=== PATIENT | female | born 1995 ===

== ENCOUNTER 2020-10-10 13:27 | Emergency (ER) | payer SELFPAY ==
[~2020-10-10] VITALS: Ht 162.6 cm; Wt 50.9 kg
--- NOTE | 2020-10-10 13:42 | PHYS DOC ---
General Adult EDM: Chief Complaint: FEVER HPI: HPI: History dated patient. Patient is a 25-year-old female with a history of asthma who presents with multiple complaints. Patient states that she has been living at home with her baby does have positive for coronavirus. She has been quarantining with that remain 10 days ago. She herself has not been tested. She notes for the past 24 hours she developed a dry cough. She denies any productive sputum. Denies any objective fevers. Denies any recent antibiotics. States he has body aches as well. Does endorse some loss of taste and smell. States she does have some chest heaviness when she coughs. Has tried TheraFlu and Tylenol at home with minimal relief. Her greatest concern is being evaluated for Covid. Denies syncope. Denies vomiting. Does endorse body aches. No other complaints. Review of Systems: Review of Systems: Constitutional: Positive for body aches Eyes: Denies change in visual acuity HENT: Positive for congestion Respiratory: Positive for cough Cardiovascular: Denies chest pain or edema GI: Denies abdominal pain, nausea, vomiting, bloody stools or diarrhea : Denies dysuria Musculoskeletal: Denies back pain or joint pain Integument: Denies rash Neurologic: Denies headache, focal weakness or sensory changes Endocrine: Denies polyuria or polydipsia Lymphatic: Denies swollen glands Psychiatric: Denies depression or anxiety Physical Exam: PE: Constitutional: Well developed, well nourished, no acute distress, non-toxic appearance. [] HENT: Normocephalic, atraumatic, bilateral external ears normal, oropharynx moist, no oral exudates, nose normal. [] Eyes: PERRLA, EOMI, conjunctiva normal, no discharge. [] Neck: Normal range of motion, no tenderness, supple, no stridor. [] Cardiovascular:Heart rate regular rhythm, no murmur [] Lungs & Thorax: Bilateral breath sounds clear to auscultation [] Abdomen: Bowel sounds normal, soft, no tenderness, no masses, no pulsatile masses. [] Skin: Warm, dry, no erythema, no rash. [] Back: No tenderness, no CVA tenderness. [] Extremities: No tenderness, no cyanosis, no clubbing, ROM intact, no edema. [] Neurologic: Alert and oriented X 3, normal motor function, normal sensory function, no focal deficits noted. [] Psychologic: Affect normal, judgement normal, mood normal. [] Current Patient Data: Vital Signs: Vital Signs Date Time Temp Pulse Resp B/P (MAP) Pulse Ox O2 Delivery O2 Flow Rate FiO2 10/10/20 13:34 99.0 82 16 97 Room Air EKG: EKG: EKG consistent with normal sinus rhythm. Ventricular rate 84 bpm. Slight right axis noted. Small Q waves noted in lead III. No acute ischemic changes appreciated. [] Radiology/Procedures: Radiology/Procedures: [place] [address] IMAGING REPORT Signed PATIENT: LAY DOOLEY ACCOUNT: [id number] : 1995 LOCATION: ER AGE: 25 SEX: F EXAM STATUS: REG ER ORD. PHYSICIAN: TRAMAINE JO DO REASON: cough PROCEDURE: CHEST AP ONLY EXAM: CHEST 1 VIEW History: Cough COMPARISON: None available. TECHNIQUE: Single portable radiograph of the chest FINDINGS: The cardiac silhouette is unremarkable. The lungs are clear bilaterally. The costophrenic sulci are clear and well demarcated. IMPRESSION: No radiographic evidence of an acute cardiopulmonary process. Electronically signed by: Jovi Williamson MD (10/10/2020 2:22 PM) [id number] DICTATED AND SIGNED BY: JOVI WILLIAMSON MD DATE: 10/10/20 1422 CC: PCP,NO; TRAMAINE JO DO ~MTH0 0 [] Heart Score: Risk Factors: Risk Factors: DM, Current or recent (<one month) smoker, HTN, HLP, family hi story of CAD, obesity. Risk Scores: Score 0 - 3: 2.5% MACE over next 6 weeks - Discharge Home Score 4 - 6: 20.3% MACE over next 6 weeks - Admit for Clinical Observation Score 7 - 10: 72.7% MACE over next 6 weeks - Early Invasive Strategies Course & Med Decision Making: Course & Med Decision Making Pertinent Labs and Imaging studies reviewed. (See chart for details) [] Patient is a well-appearing 25-year-old female who presents with multiple complaints including cough, chest heaviness, shortness of breath, body aches. She does note that her roommate has been diagnosed with Covid approximate 10 days ago. There is vital signs unremarkable. EKG without acute ischemic changes. Chest x-ray nonacute. No signs of bacterial consolidation. I feel her chest pain is likely cardiac in nature. Overall do not feel any further laboratory analysis or imaging is indicated. She was given supportive care measures to use at home. She was instructed to quarantine until her Covid results return. Patient is agreeable to this plan. Repeat vital signs been stable and her exam remains unchanged. Return precautions discussed and understood. Struck to follow-up with her primary care physician next 2 to 3 days. Stable for discharge home. COVID-19 CRITERIA: The patient was evaluated during the global COVID-19 pandemic, and that diagnosis was suspected/considered upon their initial presentation. Their evaluation, treatment and testing was consistent with current guidelines for patients who present with complaints or symptoms that may be related to COVID-19. Dragon Disclaimer: Dragon Disclaimer: This electronic medical record was generated, in whole or in part, using a voice recognition dictation system. Departure Departure: Impression: Primary Impression: Cough Additional Impression: Exposure to COVID-19 virus Disposition: 01 DC HOME SELF CARE/HOMELESS Condition: STABLE Referrals: PCPJOAN (PCP) BIA CHAVEZ MD Additional Instructions: You have been tested for or diagnosed with COVID-19. It is an infection caused by a new type of coronavirus. COVID-19 will cause cold-like or mild flu symptoms in most. It can cause more severe symptoms like problems breathing in some. There is no treatment for COVID-19. The body will clear the infection over time. Self-care will help to ease discomfort. Steps to Take: Self-Care Rest as needed. Healthy habits may help you feel better. Steps include: Choose healthy foods including fruits and vegetables. Drink water throughout the day. Get plenty of sleep each night. If you smoke, try to quit. It may ease breathing. Avoid alcohol. Keep Others Healthy The virus can spread to others. Droplets are released every time you sneeze or cough. The droplets can get into the mouth, nose, or eyes of people near you and lead to infection. To lower the chances of spreading COVID-19 to others: Stay at home until your doctor has said it is safe to leave. If you tested positive this will mean staying isolated until both of the following are true: At least 7 days have passed since the start of illness. You are free of fever for at least 72 hours without the use of medicine. During this time: - Avoid public areas, events, or transportation. Do not return to work or school until your doctor has said it is safe to do so. - Call ahead if you need to go to a medical center. Let them know you may have COVID-19. It will help them guide you where to go. They may also ask you to wear a facemask when you come to the office. - If you call for emergency medical services, let them know you may have COVID- 19. While at home: - Try to avoid close contact with others. Stay about 6 feet away. - If possible, spend most of your time in a separate room from others. - Use a face mask if you will be in close contact with others such as sharing a room or vehicle. - Have someone wipe down common surfaces in the home. Use household pegger every day on areas like doorknobs, counters, or sinks. - Cough or sneeze into a tissue. Throw the tissue away right after use. If a tissue is not available, cough or sneeze into your elbow. - Wash your hands often. Wash them after sneezing or coughing. Use soap and water and wash for at least 20 seconds. Alcohol based hand coach cleaner can be used if soap and water is not available. - Do not prepare food for others. Avoid sharing personal items like forks, spoons, or toothbrushes. - Avoid close contact with pets while you are sick. There is no evidence of the virus passing to pets. This is a safety step until more is known about this virus. Isolation can be frustrating. Social interaction can help. Keep in touch with friends and family through phone and tech options. You can still interact with others in your home, just keep a safe distance of about 6 feet. Follow-up: Your doctors office will check in with you to see if there are any changes in your health. You may be asked to keep track of symptoms to share with them. They will also let you know when you are clear to be in public again. Problems to Look Out For: Contact your doctor if your recovery is not going as you expect. Get emergency care if you have problems such as: - Trouble breathing - Nonstop chest pain or pressure - Changes in awareness, confusion, or problems waking - Lips or face have bluish color - Worsening of symptoms If you think you have an emergency, call for emergency medical services right away. As taken from [facility] Script[facility] Acetaminophen (TYLENOL) 325 Mg Tablet 1-2 TAB PO QID for pain for 7 Days, #30 TAB 2 Refills Prov: TRAMAINE JO DO 10/10/20 Guaifenesin/Dextromethorphan (MUCINEX DM ER 600-30 MG TABLET) 1 Each Tab.er.12h 1 TAB PO PRN BID PRN for cough and congestion for 5 Days, #10 TAB 0 Refills Prov: TRAMAINE JO DO 10/10/20 Fluticasone Propionate (Flonase Allergy Relief) 9.9 Ml [place].susp 2 SPRAYS NS DAILY for nasal congestion for 14 Days, #1 BOTTLE Prov: TRAMAINE JO DO 10/10/20 TRAMAINE JO DO Oct 10, 2020 13:42
--- NOTE | 2020-10-10 14:25 | RAD ---
EXAM: CHEST 1 VIEW History: Cough COMPARISON: None available. TECHNIQUE: Single portable radiograph of the chest FINDINGS: The cardiac silhouette is unremarkable. The lungs are clear bilaterally. The costophrenic sulci are clear and well demarcated. IMPRESSION: No radiographic evidence of an acute cardiopulmonary process. Electronically signed by: Jovi Arreaga MD (10/10/2020 2:22 PM) [id number]
[2020-10-10] MEDS ORDERED: ACET325T9 PO (14:41)
[2020-10-10] MEDS ORDERED: FLUT9.9S NS (14:41)
[2020-10-10] MEDS ORDERED: GUAI-108 PO (14:41)
--- NOTE | 2020-10-10 15:20 | EKG ---
[address] [address] Test Date: 2020-10-10 Test Time: 13:43:34 Pat Name: LAY DOOLEY Department: Room: Gender: F [employer] Supervisor: COLLEEN : 1995 Requested By: TRAMAINE JO Order Number: [id number] Reading MD: Lucius Melchor Measurements Intervals [place] Rate: 84 P: 49 MT: 124 QRS: 81 QRSD: 84 T: 38 QT: 338 QTc: 402 Interpretive Statements SINUS RHYTHM NORMAL ECG RI6.02 No previous ECG available for comparison Electronically Signed On 10-14-2020 10:56:06 NEGATIVE SPOTTER by Lucius Melchor
== END 2020-10-10 14:45 | disposition home or self-care (01) ==
LOC: ER 13:27
DX: R05 Cough (principal); M79.10 Myalgia, unspecified site; R43.9 Unspecified disturbances of smell and taste; Z20.828 Contact with and (suspected) exposure to other viral communicable diseases
CPT/HCPCS: 71045; 93005; 99285; C9803; U0003

== ENCOUNTER 2021-10-23 12:28 | Emergency (ER) | payer OTHER ==
[~2021-10-23] VITALS: Ht 162.6 cm; Wt 50.9 kg
[~2021-10-23 12:28] MED LIST: ACET325T9 PO; FLUT9.9S NS; GUAI-108 PO
[2021-10-23 12:45] VITALS: BP 119/75
--- NOTE | 2021-10-23 13:10 | PHYS DOC ---
Past History Past Medical History: Asthma (FREDA HARRIS APRN) Past Surgical History: No Surgical History (FREDA HARRIS APRN) Alcohol Use: None (FREDA HARRIS APRN) General Adult EDM: Chief Complaint: FOOT INJURY PAIN HPI: HPI: Patient is a 26-year-old female who presents to the emergency department for left foot pain post injury. Patient reports that 1 hour prior to arrival she ran over her left foot with a power [place] loaded with gym equipment at work. She rates her pain 10 out of 10. It is worse with movement. She describes as a throbbing pain. No treatment prior to arrival. Patient reports that she has been able to slightly bear weight on her foot, decreased range of motion due to pain. She denies any decreased sensation to her extremity. (FREDA HARRIS APRN) Review of Systems: Review of Systems: Musculoskeletal: See HPI Integument: See HPI Neurologic: See HPI (FREDA HARRIS APRN) Allergies: Allergies: Allergies Coded Allergies Type Severity Reaction Last Updated Verified Penicillins Allergy Unknown 10/10/20 Yes vancomycin Allergy Unknown 10/10/20 Yes (FREDA HARRIS APRN) Physical Exam: PE: Constitutional: Well developed, well nourished, no acute distress, non-toxic appearance. [] HENT: Normocephalic, atraumatic Eyes: PERRL, EOMI, conjunctiva normal, no discharge. [] Neck: Normal range of motion, no stridor Cardiovascular: Normal peripheral perfusion Lungs & Thorax: Normal work of breathing, no tachypnea Abdomen: Soft and flat Skin: Warm, dry, no erythema, no rash. [] Back: Normal range of motion Extremities: No tenderness, no cyanosis, no clubbing, ROM intact, no edema. Left foot: Ecchymosis noted to top of left foot, pain with palpation to top of left foot, range of motion intact, neuro intact, no obvious deformity or open w ounds Neurologic: Alert and oriented X 3, normal motor function, normal sensory function, no focal deficits noted. [] Psychologic: Affect normal, judgement normal, mood normal. [] (FREDA HARRIS APRN) Current Patient Data: Vital Signs: Vital Signs Date Time Temp Pulse Resp B/P (MAP) Pulse Ox O2 Delivery O2 Flow Rate FiO2 10/23/21 12:45 98.0 71 18 119/75 (90) 100 Room Air (FREDA HARRIS APRN) EKG: EKG: [] (FREDA HARRIS APRN) Radiology/Procedures: Radiology/Procedures: []PROCEDURE: FOOT LEFT 3V XR EXAM OF ANKLE_LEFT 3V, XR FOOT_LEFT 3 VIEWS Clinical indications: Reason: RAN OVER BY TRUCK AND TWISTED ANKLE / Spl. Instructions: / History: Findings: No acute fracture or dislocation or osteolytic process is evident. Mortise ankle joint is intact. IMPRESSION: No acute osseous abnormality is evident. Electronically signed by: Alla Richards MD (10/23/2021 1:36 PM) [id number] DICTATED AND SIGNED BY: ALLA RICHARDS MD DATE: 10/23/211333 CC: ARMANDO SIMPSON DO; EMILY COLE DO; FREDA HARRIS APRN ~MTH0 0 (FREDA HARRIS APRN) Heart Score: C/O Chest Pain: N/A Risk Factors: Risk Factors: DM, Current or recent (<one month) smoker, HTN, HLP, family history of CAD, obesity. Risk Scores: Score 0 - 3: 2.5% MACE over next 6 weeks - Discharge Home Score 4 - 6: 20.3% MACE over next 6 weeks - Admit for Clinical Observation Score 7 - 10: 72.7% MACE over next 6 weeks - Early Invasive Strategies (FREDA HARRIS APRN) Course & Med Decision Making: Course & Med Decision Making Pertinent Labs and Imaging studies reviewed. (See chart for details) [] Patient presents to the emergency department for left foot injury after running over her foot with a power [place] loaded with gym equipment. An x-ray was performed that showed no acute findings. Patient's pain was treated in the ER and she was given an ice pack. Patient's foot placed in a Mg wrap and postop shoe. Patient advised to take anti-inflammatory medications at home for the pain. Patient will be discharged home with pain medication. I discussed with patient all findings and diagnostic testing as well as the need to follow-up with PCP for further evaluation and treatment or return to the ER if any new or worsening symptoms. Strict return precautions were also discussed at length. Patient voiced understanding and agreement with the plan. Patient is hemodynamically stable at the time of disposition.. (FREDA HARRIS APRN) Dragon Disclaimer: Dragon Disclaimer: This electronic medical record was generated, in whole or in part, using a voice recognition dictation system. (FREDA HARRIS APRN) Attending Co-Sign The patient was seen and interviewed as well as examined at the bedside. The chart was reviewed. The case was discussed. Agree with the plan of care. (ARMANDO SIMPSON DO) Departure Departure: Impression: Primary Impression: Foot contusion Qualified Codes: S90.32XA - Contusion of left foot, initial encounter Disposition: HOME / SELF CARE / HOMELESS Condition: GOOD Referrals: EMILY COLE DO (PCP) Patient Instructions: Foot Contusion Additional Instructions: You were seen in the emergency department today for foot injury. Imaging was performed that showed no acute findings. Your foot was placed in a Mg wrap and Ortho shoe to help with support and comfort.. Your symptoms may be improved by something called the rice protocol. This is rest, ice, compression, elevation. Please follow-up when doing intense exercises that may make the pain worse. Sometimes gentle stretching can provide relief, but be careful to injury. It is important to perform gentle range of motion exercises to prevent stiff joints and chronic pain. Use ice packs over the affected areas to help decrease your pain. For the first 24 hours you can apply ice 20 minutes on 20 minutes off for 4 times per day. Sometimes compression such as the use of an Mg wrap can help with the swelling. You may also elevate the affected area to help with the swelling. You can take ibuprofen or naproxen for mild pain. For severe pain you are being discharged home with a medication called [place]. This medication is hydrocodone and Tylenol combination tablet. Do not take any additional Tylenol with this medication. This medication may cause drowsiness so do not take needs to be alert, driving a vehicle or with alcohol. Please follow-up with your primary care provider on Tuesday regarding your ER visit. Please return to the emergency department if you develop worsening of your pain, increased falling, decreased range of motion or decreased sensation to your extremity. Scripts Hydrocodone Bit/Acetaminophen (HYDROCODONE-APAP 5-325 ) 1 Each Tablet 1 TAB PO PRN Q6HRS PRN for PAIN for 2 Days, #8 TAB 0 Refills Prov: FREDA HARRIS APRN 10/23/21 FREDA HARRIS APRN Oct 23, 2021 13:10 ARMANDO SIMPSON DO Oct 24, 2021 08:03
[2021-10-23] MEDS ORDERED: HYDROcodone/APAP 5/325MG 1 TAB TABLET PO ONE (13:15)
[2021-10-23] MEDS ORDERED: ONDANSETRON ODT 4 MG TAB.RAPDIS ONE (13:36)
--- NOTE | 2021-10-23 13:38 | RAD ---
XR EXAM OF ANKLE_LEFT 3V, XR FOOT_LEFT 3 VIEWS Clinical indications: Reason: RAN OVER BY TRUCK AND TWISTED ANKLE / Spl. Instructions: / History: Findings: No acute fracture or dislocation or osteolytic process is evident. Mortise ankle joint is intact. IMPRESSION: No acute osseous abnormality is evident. Electronically signed by: Zane Richards MD (10/23/2021 1:36 PM) [id number]
[2021-10-23] MEDS ORDERED: HYDR-2155 PO (13:44)
== END 2021-10-23 14:06 | disposition home or self-care (01) ==
LOC: ER 12:28
DX: S90.32XA Contusion of left foot, initial encounter (principal); Z88.0 Allergy status to penicillin; Z88.1 Allergy status to other antibiotic agents; X58.XXXA Exposure to other specified factors, initial encounter; Y93.43 Activity, gymnastics; Y92.89 Other specified places as the place of occurrence of the external cause; Y99.8 Other external cause status
CPT/HCPCS: 73610; 73630; 99284-25

== ENCOUNTER 2021-11-10 07:41 | Emergency (ER) | payer OTHER ==
[~2021-11-10] VITALS: Ht 162.6 cm; Wt 57.7 kg
[~2021-11-10 07:41] MED LIST changes: +HYDR-2155 PO
--- NOTE | 2021-11-10 08:50 | PHYS DOC ---
Past History Past Medical History: Asthma Additional Past Medical Histor: ADHD Past Surgical History: Other Additional Past Surgical Histo: wisdom teeth Alcohol Use: None General Adult EDM: Chief Complaint: COUGH HPI: HPI: 26-year-old female presents with cough, congestion, body aches. She recently returned from vacation with her family. She is concerned about COVID-19. Her family all just got tested yesterday and they were all positive. The patient is vaccinated her last dose 5 months ago. She is concerned about going to her job if she is positive. [place] She denies fever. Review of Systems: Review of Systems: Constitutional: Denies fever or chills. Body aches, fatigue. Eyes: Denies change in visual acuity HENT: Denies nasal congestion or sore throat Respiratory: Cough without shortness of breath Cardiovascular: Denies chest pain or edema GI: Denies abdominal pain, nausea, vomiting, bloody stools or diarrhea : Denies dysuria Musculoskeletal: Denies back pain or joint pain Integument: Denies rash Neurologic: Denies headache, focal weakness or sensory changes Endocrine: Denies polyuria or polydipsia Lymphatic: Denies swollen glands Psychiatric: Denies depression or anxiety Allergies: Allergies: Allergies Coded Allergies Type Severity Reaction Last Updated Verified Penicillins Allergy Unknown 11/10/21 Yes vancomycin Allergy Unknown 11/10/21 Yes Physical Exam: PE: Constitutional: Well developed, well nourished, no acute distress, non-toxic appearance. [] HENT: Normocephalic, atraumatic, bilateral external ears normal, oropharynx moist, no oral exudates, nose normal. [] Eyes: PERRLA, EOMI, conjunctiva normal, no discharge. [] Neck: Normal range of motion, no tenderness, supple, no stridor. [] Cardiovascular:Heart rate regular rhythm, no murmur [] Lungs & Thorax: Bilateral breath sounds clear to auscultation [] Abdomen: Bowel sounds normal, soft, no tenderness, no masses, no pulsatile masses. [] Skin: Warm, dry, no erythema, no rash. [] Back: No tenderness, no CVA tenderness. [] Extremities: No tenderness, no cyanosis, no clubbing, ROM intact, no edema. [] Neurologic: Alert and oriented X 3, normal motor function, normal sensory function, no focal deficits noted. [] Psychologic: Affect normal, judgement normal, mood normal. [] Current Patient Data: Vital Signs: Vital Signs Date Time Temp Pulse Resp B/P (MAP) Pulse Ox O2 Delivery O2 Flow Rate FiO2 11/10/21 07:53 98.6 98 18 110/72 (85) 100 Room Air EKG: EKG: [] Radiology/Procedures: Radiology/Procedures: [] Heart Score: C/O Chest Pain: N/A Risk Factors: Risk Factors: DM, Current or recent (<one month) smoker, HTN, HLP, family history of CAD, obesity. Risk Scores: Score 0 - 3: 2.5% MACE over next 6 weeks - Discharge Home Score 4 - 6: 20.3% MACE over next 6 weeks - Admit for Clinical Observation Score 7 - 10: 72.7% MACE over next 6 weeks - Early Invasive Strategies Course & Med Decision Making: Course & Med Decision Making Pertinent Labs and Imaging studies reviewed. (See chart for details) The patient likely has COVID-19. I have advised that she isolate till she gets a negative test or 10 days. She is stable for discharge at this time. [] Dragon Disclaimer: Dragon Disclaimer: This electronic medical record was generated, in whole or in part, using a voice recognition dictation system. Departure Departure: Impression: Primary Impression: Exposure to COVID-19 virus Additional Impression: Suspected 2019 novel coronavirus infection Disposition: HOME / SELF CARE / HOMELESS Condition: STABLE Referrals: EMILY COLE DO (PCP) Patient Instructions: Viral Syndrome Additional Instructions: You have been tested for or diagnosed with COVID-19. It is an infection caused by a new type of coronavirus. COVID-19 will cause cold-like or mild flu symptoms in most. It can cause more severe symptoms like problems breathing in some. There is no treatment for COVID-19. The body will clear the infection over time. Self-care will help to ease discomfort. Steps to Take: Self-Care Rest as needed. Healthy habits may help you feel better. Steps include: Choose healthy foods including fruits and vegetables. Drink water throughout the day. Get plenty of sleep each night. If you smoke, try to quit. It may ease breathing. Avoid alcohol. Keep Others Healthy The virus can spread to others. Droplets are released every time you sneeze or cough. The droplets can get into the mouth, nose, or eyes of people near you and lead to infection. To lower the chances of spreading COVID-19 to others: Stay at home until your doctor has said it is safe to leave. If you tested positive this will mean staying isolated until both of the following are true: At least 7 days have passed since the start of illness. You are free of fever for at least 72 hours without the use of medicine. During this time: - Avoid public areas, events, or transportation. Do not return to work or school until your doctor has said it is safe to do so. - Call ahead if you need to go to a medical center. Let them know you may have COVID-19. It will help them guide you where to go. They may also ask you to wear a facemask when you come to the office. - If you call for emergency medical services, let them know you may have COVID- 19. While at home: - Try to avoid close contact with others. Stay about 6 feet away. - If possible, spend most of your time in a separate room from others. - Use a face mask if you will be in close contact with others such as sharing a room or vehicle. - Have someone wipe down common surfaces in the home. Use household primary operator every day on areas like doorknobs, counters, or sinks. - Cough or sneeze into a tissue. Throw the tissue away right after use. If a tissue is not available, cough or sneeze into your elbow. - Wash your hands often. Wash them after sneezing or coughing. Use soap and water and wash for at least 20 seconds. Alcohol based hand bisque cleaner can be used if soap and water is not available. - Do not prepare food for others. Avoid sharing personal items like forks, spoons, or toothbrushes. - Avoid close contact with pets while you are sick. There is no evidence of the virus passing to pets. This is a safety step until more is known about this virus. Isolation can be frustrating. Social interaction can help. Keep in touch with friends and family through phone and tech options. You can still interact with others in your home, just keep a safe distance of about 6 feet. Follow-up: Your doctors office will check in with you to see if there are any changes in your health. You may be asked to keep track of symptoms to share with them. They will also let you know when you are clear to be in public again. Problems to Look Out For: Contact your doctor if your recovery is not going as you expect. Get emergency care if you have problems such as: - Trouble breathing - Nonstop chest pain or pressure - Changes in awareness, confusion, or problems waking - Lips or face have bluish color - Worsening of symptoms If you think you have an emergency, call for emergency medical services right away. As taken from [facility] ARMANDO SIMPSON DO Nov 10, 2021 08:50
[2021-11-10 09:24] LABS: INFLUENZA A PATIENT NEGATIVE (NEGATIVE); INFLUENZA B PATIENT NEGATIVE (NEGATIVE)
[2021-11-10 09:42] VITALS: BP 111/78
== END 2021-11-10 09:45 | disposition home or self-care (01) ==
LOC: ER 07:41
DX: U07.1 COVID-19 (principal); J45.909 Unspecified asthma, uncomplicated; Z88.0 Allergy status to penicillin; Z88.1 Allergy status to other antibiotic agents
CPT/HCPCS: 87804; 99285; C9803; U0003